=== PATIENT | male | born 1985 | race African-American/Black ===

== ENCOUNTER 2018-03-21 21:27 | Emergency (ER) | payer OTHER ==
[2018-03-21] MEDS: ONDANSETRON (ODT) 4 MG TAB ODT (22:49)
[2018-03-21] MEDS: HYDROCODONE/APAP (5/325) TAB PO (22:50)
[2018-03-21] MEDS: LIDOCAINE 1% (MDV) 20 ML INJ SC (22:53)
== END 2018-03-22 01:13 | disposition home or self-care (01) ==
LOC: FTE 21:27
DX: S00.03XA Contusion of scalp, initial encounter (principal); Y08.89XA Assault by other specified means, initial encounter
CPT/HCPCS: 70450; 99284-25

== ENCOUNTER 2018-05-07 01:32 | Emergency (ER) | payer OTHER ==
[2018-05-07] MEDS: ALBUTEROL 0.083% (NEB) 2.5 MG/3 ML AMP HHN (04:11)
== END 2018-05-07 05:24 | disposition home or self-care (01) ==
LOC: FTE 01:32
DX: S60.051A Contusion of right little finger without damage to nail, initial encounter (principal); R05 Cough; X58.XXXA Exposure to other specified factors, initial encounter; Y92.9 Unspecified place or not applicable
CPT/HCPCS: 29130; 73140; 94664; 99283-25